=== PATIENT | female | born 1960 | race Caucasian/White ===

== ENCOUNTER 2019-10-29 18:18 | Observation (INO) | payer OTHER ==
--- OUTSIDE RECORDS SUMMARY | 2019-10-29 18:21 | XMS REPORT ---
:1960 Author Organization [employer] Care Team Providers Name Role Phone Chandu Candelario Provider Role Unavailable Allergies No Known Allergies Problems Problem Type Condition Code Onset Dates Condition Status Assessment Internal derangement of right knee M23.91 Active Assessment Pain in right knee M25.561 Active Assessment Sciatica, right side M54.31 Active Problem Pain in right knee M25.561 Active Problem Other chronic pain G89.29 Active Problem Pain of right lower leg M79.661 Active Assessment Pain of right lower leg M79.661 Active Problem Sciatica, right side M54.31 Active Problem Internal derangement of right knee M23.91 Active Medications Medication Code System Code Instructions Start End Date Status Dosage Date Alendronate Sodium [facility] 49820-18 Active not defined 01-00 Diazepam [facility] 93486-52 Active not defined 00-01 Mirtazapine [facility] 67611-57 Active not defined 01-05 Sertraline HCl [facility] 45041-11 Active not defined 01-02 Multivitamin [facility] 66370-19 Active not defined 838 Restasis [facility] 45427-64 Active not defined 63-30 Gabapentin NDC 0 Active not defined Breo Ellipta [facility] 23108-54 Active not defined 82-10 potassium NDC 0 Active not defined losartan NDC 0 Active not defined Vitamin B-12 [facility] 57343-33 Active not defined 980 Pantoprazole [facility] 86001-71 Active not defined Sodium 84-01 Vitamin D-3 [facility] 64363-27 Active not defined 924 Celecoxib [facility] 74468-82 Active not defined 06-06 [place] [address]-43 Active not defined ER 11-11 Calcium NDC 0 [place] [address]-34 Active not defined 51-01 Levothyroxine [facility] 56379-52 Active not defined Sodium 01-01 [place] [address]-69 Active not defined 01-04 Ventolin NDC 0 Active not defined Results No Known Results Summary Purpose [employer]ClinicalWorks Submission
[2019-10-29 19:17] LABS: Absolute Lymphocytes (CBC) 1.8 K/uL (0.7-4.9); Basophils % 0.8 % (0-1.3); Hematocrit 41.6 % (36.0-45.0); Lymphocytes % 21.9 % (15.3-44.8); MPV 7.3 fL (7.6-11.3); Protime INR 0.96; RBC Red Blood Cell Count 4.26 M/uL (3.86-4.86)
--- NOTE | 2019-10-29 19:34 | RAD REPORT ---
EXAM DESCRIPTION: CT - Head Brain Wo Cont - 10/29/2019 7:23 pm CLINICAL HISTORY: Headache COMPARISON: 2006 TECHNIQUE: Computed axial tomography of the head was obtained. IV contrast was not requested. All CT scans are performed using dose optimization technique as appropriate and may include automated exposure control or mA/KV adjustment according to patient size. FINDINGS: An intracranial bleed is not seen . The ventricles are normal in caliber. No extra-axial fluid collection is noted. Fluid within the sinuses/ mastoids is not seen. IMPRESSION: No acute intracranial abnormality is seen. If patient's symptoms persist MRI of the bra in would be recommended.
--- NOTE | 2019-10-29 19:35 | ER ---
Nurse's Notes [facility] Name: Daniela Mustafa Age: 58 yrs Sex: Female : 1960 Arrival Date: 10/29/2019 Time: 18:33 Bed 13 Private MD: Diagnosis: Chest pain, unspecified;Chest pain on breathing;Tobacco abuse counseling;Tobacco use;Pulmonary fibrosis, unspecified Presentation: 10/29 18:33 Presenting complaint: EMS states: pt was eating at [employer] about an hour ago when ca1 she c/o chest pain upon breathing. Inspiratory pain that is described as sharp and non-radiating. VS are stable, 12L EKG is normal. BGL 123, Meds not given, IV inserted at R wrist G20. Hx of VT and HPN. Transition of care: patient was not received from another setting of care. Onset of symptoms was October 29, 2019 at 17:00. Risk Assessment: Do you want to hurt yourself or someone else? Patient reports no desire to harm self or others. Initial Sepsis Screen: Does the patient meet any 2 criteria? No. Patient's initial sepsis screen is negative. Does the patient have a suspected source of infection? No. Patient's initial sepsis screen is negative. Care prior to arrival: None. 18:33 Method Of Arrival: [facility] ca1 18:33 Acuity: TAB 3 ca1 Historical: - Allergies: 18:43 No Known Allergies; ca1 - PMHx: 18:43 Hypertension; Thyroid problem; Fibromyalgia; Rheumatoid Arthritis; Osteoporosis; ca1 Osteoarthritis; Myocardial infarction; Neuropathy; - PSHx: 18:43 Hernia repair; ca1 - Immunization history:: Adult Immunizations up to date, Pneumococcal vaccine is up to date, Flu vaccine is up to date. - Social history:: Smoking status: Patient uses tobacco products, smokes one pack cigarettes per day. - Ebola Screening: : Patient negative for fever greater than or equal to 101.5 degrees Fahrenheit, and additional compatible Ebola Virus Disease symptoms Patient denies exposure to infectious person Patient denies travel to an Ebola-affected area in the 21 days before illness onset No symptoms or risks identified at this time. - Family history:: not pertinent. Screenin:45 Abuse screen: Denies threats or abuse. Denies injuries from another. Nutritional ca1 screening: No deficits noted. Tuberculosis screening: No symptoms or risk factors identified. Fall Risk IV access (20 points). Assessment: 18:45 General: Appears in no apparent distress. comfortable, Behavior is calm, cooperative, ca1 appropriate for age. Pain: Complains of pain in anterior aspect of left upper chest Pain does not radiate. Pain currently is 7 out of 10 on a pain scale. Quality of pain is described as sharp, Pain began 1 hour ago. Is intermittent. Neuro: Level of Consciousness is awake, alert, obeys commands, Oriented to person, place, time, situation, Appropriate for age. Cardiovascular: Heart tones S1 S2 present Capillary refill < 3 seconds Patient's skin is warm and dry. Rhythm is sinus rhythm. Respiratory: Airway is patent Respiratory effort is even, unlabored, Respiratory pattern is regular, symmetrical, Breath sounds are clear bilaterally. GI: Abdomen is flat, non-distended, Bowel sounds present X 4 quads. Abd is soft and non tender X 4 quads. : No deficits noted. No signs and/or symptoms were reported regarding the genitourinary system. EENT: No deficits noted. No signs and/or symptoms were reported regarding the EENT system. Derm: Skin is intact, is healthy with good turgor, Skin is pink, warm \T\ dry. Musculoskeletal: Circulation, motion, and sensation intact. Capillary refill < 3 seconds. 19:22 Reassessment: PT to CT. ca1 19:51 Reassessment: Patient appears in no apparent distress at this time. Patient is alert, ca1 oriented x 3, equal unlabored respirations, skin warm/dry/pink. 20:39 Reassessment: Patient appears in no apparent distress at this time. Patient is alert, ca1 oriented x 3, equal unlabored respirations, skin warm/dry/pink. 22:00 Reassessment: Patient appears in no apparent distress at this time. Patient is alert, rr5 oriented x 3, equal unlabored respirations, skin warm/dry/pink. received from daniela DUNLAP for admission awaiting for room assignment. patient is awake, conscious and coherent not in distress. vital signs taken and recorded. Patient states symptoms have improved. 23:00 Reassessment: Patient appears in no apparent distress at this time. No changes from rr5 previously documented assessment. Patient is alert, oriented x 3, equal unlabored respirations, skin warm/dry/pink. 10/30 00:00 Reassessment: Patient appears in no apparent distress at this time. resting eyes closed rr5 breathing spontaneously at room air. awaiting for acceptance of report. 00:30 Reassessment: hospitalist informed for the BP of 76/55 mmHg with telephone order made rr5 and carried out. 01:16 Reassessment: Patient appears in no apparent distress at this time. Patient is alert, rr5 oriented x 3, equal unlabored respirations, skin warm/dry/pink. denies any discomfort latest BP 92/58 mmHg after 1 liter of NS. 4th floor staff updated thru phone. Patient denies pain at this time. Vital Signs: 10/29 18:43 BP 115 / 75; Pulse 84; Resp 16 S; Temp 98.9(O); Pulse Ox 99% on R/A; Weight 79.83 kg ca1 (R); Height 5 ft. 8 in. (172.72 cm) (R); Pain 7/10; 19:51 BP 108 / 79; Pulse 88; Resp 20 S; Pulse Ox 97% on R/A; ca1 20:39 BP 109 / 70; Pulse 81; Resp 16 S; Pulse Ox 98% on R/A; ca1 22:30 BP 92 / 55; Pulse 79; Resp 25; Pulse Ox 94% ; rr5 10/30 00:00 BP 90 / 51; Pulse 74; Resp 24; Temp 96.9; Pulse Ox 95% ; Pain 0/10; rr5 00:35 BP 76 / 55; Pulse 66; Resp 20; Pulse Ox 94% ; rr5 01:00 BP 83 / 55; Pulse 64; Resp 21; Pulse Ox 93% ; rr5 01:07 BP 96 / 62; Pulse 68; Resp 22; Temp 97.5; Pulse Ox 99% ; rr5 01:15 BP 92 / 58; Pulse 65; Resp 20; Pulse Ox 94% ; rr5 10/29 18:43 Body Mass Index 26.76 (79.83 kg, 172.72 cm) ca1 01:00 ongoing NS bolus rr5 ED Course: 10/29 18:33 Patient arrived in ED. ca1 18:37 Timo Gibson MD is Attending Physician. jeannie 18:38 Triage completed. ca1 18:43 Arm band placed on right wrist. ca1 18:45 Patient has correct armband on for positive identification. Placed in gown. Bed in low ca1 position. Call light in reach. Side rails up X 1. playground monitor on. Pulse ox on. NIBP on. Warm blanket given. 18:45 No provider procedures requiring assistance completed. Maintain EMS IV. Dressing ca1 intact. Good blood return noted. Site clean \T\ dry. Gauge \T\ site: G20 wrist. 18:51 Side rails up X2. Adult w/ patient. 5 18:51 EKG done, by ED staff, reviewed by Timo Gibson MD. mh5 19:03 Initial lab(s) drawn, by sc, sent to lab. ca1 19:13 Daniela Ovalle, RN is Primary Nurse. ca1 19:14 XRAY Chest (1 view) In Process Unspecified. EDMS 19:22 Urine collected: clean catch specimen, clear, Amount Voided: 60mL. ca1 19:23 CT Head Brain wo Cont In Process Unspecified. EDMS 19:32 Ellie Lainez MD is Hospitalizing Provider. [facility] 20:17 CT Chest For PE Angio In Process Unspecified. EDMS 10/30 00:01 Patient admitted, IV remains in place. intact, No redness/swelling at site. rr5 Administered Medications: 10/29 19:34 Drug: Lopressor 25 mg Route: PO; ca1 20:39 Follow up: Response: No adverse reaction ca1 19:36 Drug: Aspirin Chewable Tablet 162 mg Route: PO; ca1 20:40 Follow up: Response: No adverse reaction ca1 19:37 Drug: Lovenox 1 mg/kg Route: Sub-Q; Site: right lower abdomen; ca1 20:40 Follow up: Response: No adverse reaction ca1 10/30 00:46 Drug: NS 0.9% 1000 ml Route: IV; Rate: 1 bolus; Site: right wrist; rr5 01:15 Follow up: Response: No adverse reaction; IV Status: Completed infusion; IV Intake: rr5 1000ml Intake: 01:15 IV: 1000ml; Total: 1000ml. rr5 Outcome: 10/29 19:34 Decision to Hospitalize by Provider. [facility] 10/30 00:32 Admitted to Tele accompanied by tech, via stretcher, room 425, Report called to lissa rr5 Condition: stable Instructed on the need for admit. 01:35 Patient left the ED. rr5 Signatures: Dispatcher [employer] Timo Price MD MD cha Martinez, [facility] Alan Sullivan, RN RN rr5 Daniela Ovalle RN RN ca1
[2019-10-29] MEDS ORDERED: ASPIRIN 81 MG CHEWABLE TABLET ONE (19:36)
[2019-10-29] MEDS ORDERED: METOPROLOL TAR 25 MG TAB ONE (19:36)
[2019-10-29] MEDS ORDERED: ENOXAPARIN 80 MG/0.8 ML SQ ONE (19:36)
--- NOTE | 2019-10-29 19:36 | EDPHYS ---
Physician Documentation [facility] Name: Daniela Mustafa Age: 58 yrs Sex: Female : 1960 Arrival Date: 10/29/2019 Time: 18:33 Bed 13 Private MD: ED Physician Timo Gibson HPI: 10/29 19:07 This 58 yrs old Female presents to ER via EMS with complaints of Chest Pain, jeannie Shortness Of Breath. 19:07 The patient or guardian reports chest pain that is located primarily in the substernal jeannie area. Onset: just prior to arrival. The pain does not radiate. Associated signs and symptoms: Pertinent positives: headache, shortness of breath. The chest pain is described as a heaviness. Modifying factors: The symptoms are alleviated by nothing. the symptoms are aggravated by nothing. Severity of pain: At its worst the pain was mild moderate in the emergency department the pain is unchanged. The patient has not experienced similar symptoms in the past. Historical: - Allergies: 18:43 No Known Allergies; ca1 - PMHx: 18:43 Hypertension; Thyroid problem; Fibromyalgia; Rheumatoid Arthritis; Osteoporosis; ca1 Osteoarthritis; Myocardial infarction; Neuropathy; - PSHx: 18:43 Hernia repair; ca1 - Immunization history:: Adult Immunizations up to date, Pneumococcal vaccine is up to date, Flu vaccine is up to date. - Social history:: Smoking status: Patient uses tobacco products, smokes one pack cigarettes per day. - Ebola Screening: : Patient negative for fever greater than or equal to 101.5 degrees Fahrenheit, and additional compatible Ebola Virus Disease symptoms Patient denies exposure to infectious person Patient denies travel to an Ebola-affected area in the 21 days before illness onset No symptoms or risks identified at this time. - Family history:: not pertinent. ROS: 19:07 Constitutional: Negative for fever, chills, and weight loss, Eyes: Negative for injury, jeannie pain, redness, and discharge, ENT: Negative for injury, pain, and discharge, Neck: Negative for injury, pain, and swelling, Respiratory: Negative for shortness of breath, cough, wheezing, and pleuritic chest pain, Abdomen/GI: Negative for abdominal pain, nausea, vomiting, diarrhea, and constipation, Back: Negative for injury and pain, : Negative for injury, bleeding, discharge, and swelling, MS/Extremity: Negative for injury and deformity, Skin: Negative for injury, rash, and discoloration, Psych: Negative for depression, anxiety, suicide ideation, homicidal ideation, and hallucinations, Allergy/Immunology: Negative for hives, rash, and allergies, Endocrine: Negative for neck swelling, polydipsia, polyuria, polyphagia, and marked weight changes, Hematologic/Lymphatic: Negative for swollen nodes, abnormal bleeding, and unusual bruising. 19:07 Cardiovascular: Positive for chest pain. 19:07 Neuro: Positive for headache. Exam: 19:07 Constitutional: This is a well developed, well nourished patient who is awake, alert, jeannie and in no acute distress. Head/Face: Normocephalic, atraumatic. Eyes: Pupils equal round and reactive to light, extra-ocular motions intact. Lids and lashes normal. Conjunctiva and sclera are non-icteric and not injected. Cornea within normal limits. Periorbital areas with no swelling, redness, or edema. ENT: Nares patent. No nasal discharge, no septal abnormalities noted. Tympanic membranes are normal and external auditory canals are clear. Oropharynx with no redness, swelling, or masses, exudates, or evidence of obstruction, uvula midline. Mucous membranes moist. Neck: Trachea midline, no thyromegaly or masses palpated, and no cervical lymphadenopathy. Supple, full range of motion without nuchal rigidity, or vertebral point tenderness. No Meningismus. Chest/axilla: Normal chest wall appearance and motion. Nontender with no deformity. No lesions are appreciated. Cardiovascular: Regular rate and rhythm with a normal S1 and S2. No gallops, murmurs, or rubs. Normal PMI, no JVD. No pulse deficits. Respiratory: Lungs have equal breath sounds bilaterally, clear to auscultation and percussion. No rales, rhonchi or wheezes noted. No increased work of breathing, no retractions or nasal flaring. Abdomen/GI: Soft, non-tender, with normal bowel sounds. No distension or tympany. No guarding or rebound. No evidence of tenderness throughout. Back: No spinal tenderness. No costovertebral tenderness. Full range of motion. Female : Normal external genitalia. Skin: Warm, dry with normal turgor. Normal color with no rashes, no lesions, and no evidence of cellulitis. MS/ Extremity: Pulses equal, no cyanosis. Neurovascular intact. Full, normal range of motion. Neuro: Awake and alert, GCS 15, oriented to person, place, time, and situation. Cranial nerves II-XII grossly intact. Motor strength 5/5 in all extremities. Sensory grossly intact. Cerebellar exam normal. Normal gait. Psych: Awake, alert, with orientation to person, place and time. Behavior, mood, and affect are within normal limits. Vital Signs: 18:43 BP 115 / 75; Pulse 84; Resp 16 S; Temp 98.9(O); Pulse Ox 99% on R/A; Weight 79.83 kg ca1 (R); Height 5 ft. 8 in. (172.72 cm) (R); Pain 7/10; 19:51 BP 108 / 79; Pulse 88; Resp 20 S; Pulse Ox 97% on R/A; ca1 20:39 BP 109 / 70; Pulse 81; Resp 16 S; Pulse Ox 98% on R/A; ca1 22:30 BP 92 / 55; Pulse 79; Resp 25; Pulse Ox 94% ; rr5 10/30 00:00 BP 90 / 51; Pulse 74; Resp 24; Temp 96.9; Pulse Ox 95% ; Pain 0/10; rr5 00:35 BP 76 / 55; Pulse 66; Resp 20; Pulse Ox 94% ; rr5 01:00 BP 83 / 55; Pulse 64; Resp 21; Pulse Ox 93% ; rr5 01:07 BP 96 / 62; Pulse 68; Resp 22; Temp 97.5; Pulse Ox 99% ; rr5 01:15 BP 92 / 58; Pulse 65; Resp 20; Pulse Ox 94% ; rr5 10/29 18:43 Body Mass Index 26.76 (79.83 kg, 172.72 cm) ca1 01:00 ongoing NS bolus rr5 MDM: 10/29 18:37 Patient medically screened. [facility] 19:11 Data reviewed: vital signs, nurses notes, lab test result(s), EKG, radiologic studies, [facility] CT scan, plain films. 10/29 18:45 Order name: Basic Metabolic Panel; Complete Time: 20:45 ca1 10/29 18:45 Order name: CBC with Diff; Complete Time: 20:45 ca1 10/29 18:45 Order name: LFT's; Complete Time: 20:45 ca1 10/29 18:45 Order name: Magnesium; Complete Time: 20:45 ca1 10/29 18:45 Order name: NT PRO-BNP; Complete Time: 20:45 ca1 10/29 18:45 Order name: PT-INR; Complete Time: 20:45 ca1 10/29 18:45 Order name: Troponin (emerg Dept Use Only); Complete Time: 20:45 ca1 10/29 19:07 Order name: Urine Culture [facility] 10/29 19:21 Order name: Urine Dipstick--Ancillary (enter results); Complete Time: 20:45 ar5 10/29 21:29 Order name: Basic Metabolic Panel [facility] 10/29 21:29 Order name: Basic Metabolic Panel [facility] 10/29 21:29 Order name: CBC with Automated Diff [facility] 10/29 21:29 Order name: CBC with Automated Diff [facility] 10/29 21:29 Order name: Lipid Profile [facility] 10/29 18:45 Order name: XRAY Chest (1 view); Complete Time: 20:[address] [facility] 10/29 18:45 Order name: EKG; Complete Time: 18:46 ca1 10/29 18:45 Order name: Cardiac monitoring; Complete Time: 18:45 ca1 10/29 18:45 Order name: EKG - Nurse/Tech; Complete Time: 18:50 ca1 10/29 19:06 Order name: CT Head Brain wo Cont; Complete Time: 20:45 [facility] 10/29 19:34 Order name: CT Chest For PE Angio; Complete Time: 20:45 [facility] 10/29 21:29 Order name: CONS Physician Consult [facility] 10/29 21:29 Order name: Heart Healthy [facility] 10/29 21:29 Order name: Echo with Doppler [facility] 10/29 21:29 Order name: EKG Electrocardiogram [facility] 10/29 21:29 Order name: EKG Electrocardiogram [facility] 10/29 21:29 Order name: Lipid Profile [facility] 10/29 18:45 Order name: IV Saline Lock; Complete Time: 18:45 ca1 10/29 18:45 Order name: Labs collected and sent; Complete Time: 18:52 ca1 10/29 18:45 Order name: O2 Per Protocol; Complete Time: 18:45 ca1 10/29 18:45 Order name: O2 Sat Monitoring; Complete Time: 18:45 ca1 10/29 19:07 Order name: Urine Dipstick-Ancillary (obtain specimen); Complete Time: 19:21 jeannie Administered Medications: 19:34 Drug: Lopressor 25 mg Route: PO; ca1 20:39 Follow up: Response: No adverse reaction ca1 19:36 Drug: Aspirin Chewable Tablet 162 mg Route: PO; ca1 20:40 Follow up: Response: No adverse reaction ca1 19:37 Drug: Lovenox 1 mg/kg Route: Sub-Q; Site: right lower abdomen; ca1 20:40 Follow up: Response: No adverse reaction ca1 10/30 00:46 Drug: NS 0.9% 1000 ml Route: IV; Rate: 1 bolus; Site: right wrist; rr5 01:15 Follow up: Response: No adverse reaction; IV Status: Completed infusion; IV Intake: rr5 1000ml Disposition: 10/29/19 19:34 Hospitalization ordered by Ellie Lainez for Observation. Preliminary diagnosis are Chest pain, unspecified, Chest pain on breathing, Tobacco abuse counseling, Tobacco use, Pulmonary fibrosis, unspecified. - Bed requested for Telemetry/MedSurg (observation). - Status is Observation. rr5 - Condition is Fair. - Problem is new. - Symptoms have improved. UTI on Admission? No Signatures: Dispatcher [employer] EDMS Timo Gibson MD MD cha Garcia, Cindy, RN RN cg Alan Sullivan RN RN rr5 Daniela Ovalle RN RN ca1 Corrections: (The following items were deleted from the chart) 10/29 21:16 19:34 Hospitalization Ordered by Ellie Lainez MD for Observation. Preliminary [facility] diagnosis is Chest pain, unspecified; Chest pain on breathing; Tobacco abuse counseling; Tobacco use. Bed requested for Telemetry/MedSurg (observation). Status is Observation. Condition is Fair. Problem is new. Symptoms have improved. UTI on Admission? No. jeannie 22:50 21:16 10/29/2019 19:34 Hospitalization Ordered by Ellie Lainez MD for Observation. Preliminary diagnosis is Chest pain, unspecified; Chest pain on breathing; Tobacco abuse counseling; Tobacco use; Pulmonary fibrosis, unspecified. Bed requested for Telemetry/MedSurg (observation). Status is Observation. Condition is Fair. Problem is new. Symptoms have improved. UTI on Admission? No. jeannie 10/30 01:35 12/30 22:50 10/29/2019 19:34 Hospitalization Ordered by Ellie Lainez MD for rr5 Observation. Preliminary diagnosis is Chest pain, unspecified; Chest pain on breathing; Tobacco abuse counseling; Tobacco use; Pulmonary fibrosis, unspecified. Bed requested for Telemetry/MedSurg (observation). Status is Observation. Condition is Fair. Problem is new. Symptoms have improved. UTI on Admission? No. cg
[2019-10-29 19:37] LABS: ALT/SGPT 16 U/L (12-78); AST/SGOT 26 U/L (15-37); Albumin 3.7 g/dL (3.4-5.0); Alkaline Phosphatase 93 U/L (45-117); BUN Blood Urea Nitrogen 15 mg/dL (7-18); Bicarbonate 28 mmol/L (21-32); Bilirubin Direct 0.1 mg/dL (0-0.2); Bilirubin Total 0.4 mg/dL (0.2-1.0); Glucose Level 99 mg/dL (74-106); Magnesium 2.1 mg/dL (1.8-2.4); NT PRO-BNP 73 pg/mL (<125); Potassium 3.5 mmol/L (3.5-5.1); Protein, Total 8.1 g/dL (6.4-8.2); Sodium Level 140 mmol/L (136-145); Troponin (Emerg Dept Use Only) < 0.02 ng/mL (0.0-0.045)
--- NOTE | 2019-10-29 19:37 | RAD REPORT ---
EXAM DESCRIPTION: Nori Single View10/29/2019 7:13 pm CLINICAL HISTORY: Chest pain COMPARISON: 2017 FINDINGS: Mild bilateral pulmonary interstitial lung opacities without obvious change presumably ch ronic The heart is normal size IMPRESSION: No acute abnormalities displayed
--- NOTE | 2019-10-29 20:29 | RAD REPORT ---
EXAM DESCRIPTION: CT - Chest For Pe Angio - 10/29/2019 8:11 pm CLINICAL HISTORY: Chest pain COMPARISON: 2017 TECHNIQUE: Dynamically enhanced axial 3 mm thick images of the chest were obtained during administra tion of <100> mL Isovue 370 IV contrast. Coronal and oblique reconstruction images were generated and reviewed. Exam utilizes a protocol for optimal evaluation of pulmonary arterial tree. Maximum intensity projections 3D imaging was utilized All CT scans are performed using dose optimization technique as appropriate and may include automated exposure control or mA/KV adjustment according to patient size. FINDINGS: A pulmonary embolus is not seen. A thoracic aortic aneurysm is not noted. A pleural effusion is not seen. A pericardial effusion is not seen. A lung consolidation is not present. Moderate predominantly subpleural interstitial lung opacities co nsistent with pulmonary fibrosis IMPRESSION: Negative for a pulmonary embolism. Moderate idiopathic pulmonary fibrosis
[2019-10-29 20:30] LABS: Urine Specific Gravity 1.015 (1.005-1.030)
[2019-10-29 20:31] LABS: Urine Blood NEGATIVE (NEG); Urine Glucose NEGATIVE (NEG); Urine Protein NEGATIVE (NEG)
[2019-10-29] MEDS ORDERED: ACETAMINOPHEN 500 MG TAB PO PRN (21:17)
[2019-10-29] MEDS ORDERED: ALPRAZOLAM 0.25 MG TABLET PO PRN (21:17)
[2019-10-29] MEDS ORDERED: MORPHINE 4 MG/ML SYR IV PRN (21:17)
[2019-10-30] MEDS ORDERED: NA CHLORIDE 0.9% 1,000 ML ONE (00:45)
[2019-10-30 02:02] VITALS: BMI 26.2
[2019-10-30 04:17] LABS: Absolute Lymphocytes (CBC) 1.7 K/uL (0.7-4.9); Hematocrit 37.8 % (36.0-45.0); Lymphocytes % 33.2 % (15.3-44.8); MPV 7.5 fL (7.6-11.3); RBC Red Blood Cell Count 3.87 M/uL (3.86-4.86)
[2019-10-30 04:23] LABS: Potassium 3.8 mmol/L (3.5-5.1)
[2019-10-30] MEDS ORDERED: HOME MED 1 EA UNK (Albuterol Sulfate [Ventolin Hfa] 2 PUFF) IH PRN (07:49)
[2019-10-30] MEDS ORDERED: HYDROCORTISONE SUC 100 MG INJ IV ONE (07:51)
--- NOTE | 2019-10-30 08:18 | P.HP ---
Certification for Inpatient Patient admitted to: Observation With expected LOS: <2 Midnights Patient will require the following post-hospital care: None Practitioner: I am a practitioner with admitting privileges, knowledge of patient current condition, hospital course, and medical plan of care. Services: Services provided to patient in accordance with Admission requirements found in Title 42 Section 412.3 of the Code of Federal Regulations Patient History Date of Service: 10/29/19 Reason for admission: Chest pain and shortness of breath History of Present Illness: Patient is a 58-year-old female came to the hospital with chest discomfort. Pain was mainly in the substernal region. Patient also had a headache and shortness of breath. Patient has history of idiopathic pulmonary fibrosis. Patient states her pain does get worse after eating. Her symptoms may be related to gastritis or gastroesophageal reflux disease. However, with her history of cardiac disease. She will be admitted for further workup. She has seen a business analysis specialist in the past and has been told she has atherosclerosis. She does not have a stent. She has never had myocardial infarction. She will be admitted for further observation. Allergies No Known Allergies Allergy (Verified 10/30/19 02:57) Home Medications: Simvastatin [Zocor*] 20 mg PO BEDTIME 03/04/13 Albuterol Sulfate [Ventolin Hfa] 2 puff IH QIDP PRN 10/30/19 Alendronate Sodium 70 mg PO EVERY 7TH DAY 10/30/19 Calcium Carbonate [Calcium] 600 mg PO BEDTIME 10/30/19 Carvedilol [Coreg] 3.125 mg PO BID 10/30/19 Celecoxib 200 mg PO BID 10/30/19 Cholecalciferol (Vitamin D3) [Vitamin D3] 2 tab PO DAILY 10/30/19 Cyclosporine [Restasis] 1 drop EACH EYE BID 10/30/19 Diazepam [Valium] 0.5 tab PO BID 10/30/19 Fluticasone/Umeclidin/Vilanter [Trelegy Ellipta 100-62.5-25] 1 puff IH BID 10/30 Gabapentin 300 mg PO TID 10/30/19 Levothyroxine Sodium 125 mcg PO DAILY 10/30/19 Losartan Potassium [Cozaar] 25 mg PO DAILY 10/30/19 Magnesium Oxide [Magnesium] 250 mg PO BEDTIME 10/30/19 Mirtazapine 30 mg PO BEDTIME 10/30/19 Morphine *Extended Release* [MS Contin] 15 mg PO TID 10/30/19 Multivitamin [Multiple Vitamins] 1 tab PO DAILY 10/30/19 Pantoprazole [Protonix Tab] 40 mg PO DAILY 10/30/19 Sertraline HCl 100 mg PO BEDTIME 10/30/19 azaTHIOprine [Azathioprine] 50 mg PO TID 10/30/19 - Past Medical/Surgical History Has patient received pneumonia vaccine in the past: Yes Diabetic: No -: Hypertension -: Hypothyroidism -: Rheumatic fever -: Acute myocardial infarction -: Osteoporosis -: Osteoarthritis -: neuropathy -: tobacco abuse -: hernia repair - Family History Mother Medical History: Cancer Notes: bone and breast cancer Father Medical History: Cancer Notes: prostate and bone cancer - Social History Smoking Status: Current every day smoker Alcohol use: No CD- Drugs: No Caffeine use: Yes Place of Residence: Home Review of Systems 10-point ROS is otherwise unremarkable Physical Examination - Vital Signs Temperature: 97.2 F Blood Pressure: 92/61 Pulse: 58 Respirations: 16 Pulse Ox (%): 95 - Physical Exam General: Alert, In no apparent distress, Oriented x3 HEENT: Atraumatic, PERRLA, Mucous membr. moist/pink, EOMI, Sclerae nonicteric Neck: Supple, 2+ carotid pulse no bruit, No LAD, Without JVD or thyroid abnormality Respiratory: Clear to auscultation bilaterally, Normal air movement Cardiovascular: Regular rate/rhythm, Normal S1 S2, No murmurs Gastrointestinal: Normal bowel sounds, Soft and benign, Non-distended, No tenderness, No rebound, No guarding Musculoskeletal: No clubbing, No swelling, No tenderness Integumentary: No rashes Neurological: Normal gait, Normal speech, Normal strength at 5/5 x4 extr, Normal tone, Sensation intact, Cranial nerves 3-12 intact, Normal affect Lymphatics: No axilla or inguinal lymphadenopathy - Studies Laboratory Data (last 24 hrs) 10/29/19 19:02: Triglycerides 203 H, Cholesterol 140, HDL Cholesterol 41, Cholesterol/HDL Ratio 3.41 10/29/19 19:02: PT 11.4, INR 0.96 10/29/19 19:02: WBC 8.2, Hgb 14.2, Hct 41.6, Plt Count 243 10/29/19 19:02: Sodium 140, Potassium 3.5, BUN 15, Creatinine 0.90, Glucose 99, Magnesium 2.1, Total Bilirubin 0.4, AST 26, ALT 16, Alkaline Phosphatase 93 Assessment & Plan - Problems (Diagnosis) (1) Chest pain, rule out acute myocardial infarction Current Visit: Yes Status: Acute (2) IPF (idiopathic pulmonary fibrosis) Current Visit: Yes Status: Acute (3) Gastritis Current Visit: Yes Status: Acute (4) GERD (gastroesophageal reflux disease) Current Visit: Yes Status: Acute (5) Tobacco abuse Current Visit: Yes Status: Acute - Plan 1. Serial troponins and EKG 2. Cardiology consultation 3. Echocardiogram and stress test if cardiology is agreeable 4. Anti-platelet therapy, anti coagulation, beta-jaja, statin, and O2 as needed 5. IV morphine for pain 6. Nitro p.r.n. 7. IV hydration/steroids 8. GI/DVT prophylaxis Discharge Plan: Home Plan to discharge in: 24 Hours - Advance Directives Does patient have a Living Will: No Does patient have a Durable POA for Healthcare: No - Code Status/Comfort Care Code Status Assessed: Yes Code Status: Full Code Critical Care: No Time Spent Managing PTS Care (In Minutes): 40
[2019-10-30] MEDS ORDERED: WATER FOR INJ,STERILE 10 ML ONE (08:44)
[2019-10-30] MEDS ORDERED: ASPIRIN EC 81 MG TAB PO SCH (09:00)
[2019-10-30] MEDS ORDERED: METOPROLOL TAR 50 MG TAB PO SCH (09:00)
[2019-10-30] MEDS ORDERED: PANTOPRAZOLE 40MG TABLET PO SCH (09:00)
[2019-10-30] MEDS ORDERED: HOME MED 1 EA UNK (Fluticasone/Umeclidin/Vilanter [Trelegy Ellipta 100-62.5-25] 1 PUFF) IH SCH (09:00)
[2019-10-30] MEDS ORDERED: AZATHIOPRINE 50 MG TABLET PO SCH (09:00)
[2019-10-30] MEDS ORDERED: HOME MED 1 EA UNK (Cyclosporine [Restasis] 1 DROP) EACH EYE SCH (09:00)
[2019-10-30] MEDS ORDERED: ENOXAPARIN 40 MG/0.4 ML SQ SCH (09:00)
[2019-10-30] MEDS ORDERED: MULTIVITAMIN TAB PO SCH (09:00)
[2019-10-30] MEDS ORDERED: DIAZEPAM 5 MG TABLET PO SCH (09:00)
[2019-10-30] MEDS ORDERED: GABAPENTIN 300 MG CAP PO SCH (09:00)
[2019-10-30] MEDS ORDERED: CHOLECALCIFEROL PO SCH (09:00)
[2019-10-30] MEDS ORDERED: HOME MED 1 EA UNK (Celecoxib [Celecoxib] 200 MG) PO SCH (09:00)
[2019-10-30] MEDS ORDERED: MORPHINE *EXTENDED RELEASE* 15 MG TAB PO SCH (09:00)
[2019-10-30] MEDS ORDERED: ASPIRIN 325 MG TAB PO SCH (09:00)
[2019-10-30 12:10] VITALS: O2SAT 97
[2019-10-30 12:59] VITALS: BP 102/56; TEMP 97.4
--- NOTE | 2019-10-30 14:07 | EKG ---
Test Date: 2019-10-29 Test Time: 18:46:23 Escrow Officer: KERLINE MEASUREMENT RESULTS: Intervals: Rate: 86 ID: [id number] QRSD: 82 QT: 382 QTc: 457 [place]: P: 41 ID: [id number] QRS: 58 T: 2 INTERPRETIVE STATEMENTS: Normal sinus rhythm Nonspecific T wave abnormality Abnormal ECG Compared to ECG 12/01/2012 16:58:41 T-wave abnormality now present Electronically Signed On 10-30-19 14:06:08 DECONTAMINATOR by Mehran Johnson
--- NOTE | 2019-10-30 15:06 | CON ---
Date of Consultation: 10/30/[address] Lainez on 10/30/2019. She was seen on 10/30/2019. Reason For Consultation: Shortness of breath and cough. History Of Present Illness: Ms. Mustafa is a 58-year-old woman. She sees Dr. Henri Pillai and Dr Gino Hodge for her renal dysfunction and COPD. She also has a history of hypertension, fibromyalgia, tobacco abuse, coronary artery disease, rheumatoid arthritis, hypothyroidism, and neuropathy. She i s in normal sinus rhythm. She came in with mostly coughing spells and shortness of breath. Denied P ND, orthopnea, pedal edema, palpitations, or syncope. Coronary artery disease is mild by catheteriza tion in 2012. She has already had a normal chest x-ray, normal CT of her head, normal CT angiogram. All her blood work was unremarkable. She is feeling better now after treatment with inhalers, aspir in, Xanax, and metoprolol. Allergies: NONE. Review of Systems: Negative. Social History: Positive for tobacco. Family History: Positive for heart disease. Home Medications: Inhalers, Coreg, Valium, Celebrex, Synthroid, Neurontin, losartan, magnesium, Prot topher, Zocor, and azathioprine. Physical Examination: General: She was pleasant. No acute distress. Vital Signs: Stable. Afebrile. HEENT: Negative. Neck: Supple without any bruit, lymphadenopathy, JVD, or thyromegaly. Chest: Reveals some expiratory wheezing. Abdomen: Benign. Cardiac: Normal rhythm and rate. No murmurs, gallops, or rubs. Abdomen: Obese. Extremities: Revealed no clubbing, cyanosis, or edema. Diagnostic Data: Basically were all within normal limit. Impression And Plan: 1.This is a patient with many cardiac risk factors. She has mild coronary artery disease in 2013, c edna in with shortness of breath, possibly chronic obstructive pulmonary disease or bronchitis, but I think an echocardiogram and a stress test are reasonable. I think a Lexiscan would be the choice. W e can certainly do that as an inpatient or outpatient. They were ordered as an inpatient, but this i s a holiday and there is no call to do the studies, so we can probably send her home or I can do thos e as an outpatient. 2.Hypertension. 3.Fibromyalgia. 4.Rheumatoid arthritis. 5.Positive tobacco use. 6.Hypothyroidism, on Synthroid. 7.Neuropathy. 8.Dyslipidemia, on Zocor. 9.Gastroesophageal reflux disease, on Protonix. As stated earlier, patient can go home as far as I am concerned. I will make arrangements for her to have outpatient Lexiscan and an echocardiogram in the near future. ТАТЬЯНА/VINOD Voice ID: [id number] Report ID: [id number]
[2019-10-30] MEDS ORDERED: ATORVASTATIN 10 MG TAB PO SCH (21:00)
[2019-10-30] MEDS ORDERED: HOME MED 1 EA UNK (Calcium Carbonate [Calcium] 600 MG) PO SCH (21:00)
[2019-10-30] MEDS ORDERED: HOME MED 1 EA UNK (Magnesium Oxide [Magnesium] 250 MG) PO SCH (21:00)
[2019-10-30] MEDS ORDERED: SERTRALINE HCL 100 MG TAB PO SCH (21:00)
[2019-10-30] MEDS ORDERED: MIRTAZAPINE 30 MG PO SCH (21:00)
[2019-10-30] MEDS ORDERED: HOME MED 1 EA UNK (Simvastatin [Zocor*] 20 MG) PO SCH (21:00)
[2019-10-31] MEDS ORDERED: LEVOTHYROXINE SOD 0.125 MG TAB PO SCH (06:30)
--- NOTE | 2019-11-05 08:35 | P.DS ---
Discharge Date: 10/30/19 Disposition: ROUTINE DISCHARGE Reason for Admission: Chest pain and shortness of breath - Problems (1) Chest pain, rule out acute myocardial infarction Status: Acute (2) IPF (idiopathic pulmonary fibrosis) Status: Acute (3) Gastritis Status: Acute (4) GERD (gastroesophageal reflux disease) Status: Acute (5) Tobacco abuse Status: Acute Brief History of Present Illness: Patient is a 58-year-old female came to the hospital with chest discomfort. Pain was mainly in the substernal region. Patient also had a headache and shortness of breath. Patient has history of idiopathic pulmonary fibrosis. Patient states her pain does get worse after eating. Her symptoms may be related to gastritis or gastroesophageal reflux disease. However, with her history of cardiac disease. She will be admitted for further workup. She has seen a res counselor in the past and has been told she has atherosclerosis. She does not have a stent. She has never had myocardial infarction. She will be admitted for further observation. Hospital Course: Patient's troponin were negative. CT was negative. Patient stable for discharge home with outpatient follow-up. Vital Signs/Physical Exam: Temp Pulse Resp BP Pulse Ox 97.4 F 57 16 102/56 L 98 10/30/19 12:00 10/30/19 12:00 10/30/19 12:00 10/30/19 12:00 10/30/19 12:00 General: Alert, In no apparent distress, Oriented x3 Laboratory Data at Discharge: WBC 5.1 K/uL (4.3-10.9) D 10/30/19 03:35 Hgb 12.8 g/dL (12.0-15.0) 10/30/19 03:35 Hct 37.8 % (36.0-45.0) 10/30/19 03:35 Plt Count 233 K/uL (152-406) 10/30/19 03:35 PT 11.4 SECONDS (9.5-12.5) 10/29/19 19:02 INR 0.96 10/29/19 19:02 Sodium 142 mmol/L (136-145) 10/30/19 03:35 Potassium 3.8 mmol/L (3.5-5.1) 10/30/19 03:35 BUN 17 mg/dL (7-18) 10/30/19 03:35 Creatinine 0.83 mg/dL (0.55-1.3) 10/30/19 03:35 Glucose 104 mg/dL (74-106) 10/30/19 03:35 Magnesium 2.1 mg/dL (1.8-2.4) 10/29/19 19:02 Total Bilirubin 0.4 mg/dL (0.2-1.0) 10/29/19 19:02 AST 26 U/L (15-37) 10/29/19 19:02 ALT 16 U/L (12-78) 10/29/19 19:02 Alkaline Phosphatase 93 U/L (45-117) 10/29/19 19:02 Troponin I < 0.02 ng/mL (0.0-0.045) 10/30/19 10:56 Triglycerides 203 mg/dL (<150) H 10/29/19 19:02 Cholesterol 140 mg/dL (<200) 10/29/19 19:02 HDL Cholesterol 41 mg/dL (40-60) 10/29/19 19:02 Cholesterol/HDL Ratio 3.41 10/29/19 19:02 Home Medications: Simvastatin [Zocor*] 20 mg PO BEDTIME 03/04/13 Albuterol Sulfate [Ventolin Hfa] 2 puff IH QIDP PRN 10/30/19 Alendronate Sodium 70 mg PO EVERY 7TH DAY 10/30/19 Calcium Carbonate [Calcium] 600 mg PO BEDTIME 10/30/19 Carvedilol [Coreg] 3.125 mg PO BID 10/30/19 Celecoxib 200 mg PO BID 10/30/19 Cholecalciferol (Vitamin D3) [Vitamin D3] 2 tab PO DAILY 10/30/19 Cyclosporine [Restasis] 1 drop EACH EYE BID 10/30/19 Diazepam [Valium] 0.5 tab PO BID 10/30/19 Fluticasone/Umeclidin/Vilanter [Trelegy Ellipta 100-62.5-25] 1 puff IH BID 10/30 Gabapentin 300 mg PO TID 10/30/19 Levothyroxine Sodium 125 mcg PO DAILY 10/30/19 Losartan Potassium [Cozaar] 25 mg PO DAILY 10/30/19 Magnesium Oxide [Magnesium] 250 mg PO BEDTIME 10/30/19 Mirtazapine 30 mg PO BEDTIME 10/30/19 Morphine *Extended Release* [MS Contin*] 15 mg PO TID 10/30/19 Multivitamin [Multiple Vitamins] 1 tab PO DAILY 10/30/19 Pantoprazole [Protonix Tab*] 40 mg PO DAILY 10/30/19 Sertraline HCl 100 mg PO BEDTIME 10/30/19 azaTHIOprine [Azathioprine] 50 mg PO TID 10/30/19 Patient Discharge Instructions: OK TO DC IV AND DC HOME. FOLLOW-UP WITH PRIMARY CARE PROVIDER IN 1-2 WEEKS. FOLLOW-UP WITH CARDIOLOGY IN 1-2 WEEKS. RETURN TO THE ER IF symptoms worsen. CALL or TEXT DR. STARR AT [phone] IF ANY QUESTIONS REGARDING HOSPITAL STAY. PLEASE CALL THE FLOOR AT [phone] IF ANY MEDICATION OR NURSING QUESTIONS. Diet: AHA Activity: Fall precautions Followup: Lucien Milian DO [Primary Care Provider] - (call to schedule appointment) Time spent managing pt's care (in minutes): 30
== END 2019-10-30 12:05 | disposition home or self-care (01) ==
LOC: ER 18:18 → INTOOBSV 10-30 00:40 → 4TH 10-30 00:40
PROVIDERS: ADMIT Hospitalist; ATTEND Hospitalist
DX: R07.9 Chest pain, unspecified (principal); I10 Essential (primary) hypertension; J84.112 Idiopathic pulmonary fibrosis; K29.00 Acute gastritis without bleeding; K21.9 Gastro-esophageal reflux disease without esophagitis; F17.210 Nicotine dependence, cigarettes, uncomplicated; R51 Headache; I25.10 Atherosclerotic heart disease of native coronary artery without angina pectoris; M06.9 Rheumatoid arthritis, unspecified; E03.9 Hypothyroidism, unspecified; M79.7 Fibromyalgia; E78.5 Hyperlipidemia, unspecified; G62.9 Polyneuropathy, unspecified
CPT/HCPCS: 93005; 87088; 85025 ×2; 87086; 80048 ×2; 36415; 83735; 85610; 80061; 80076; 81003; 84484 ×3; 83880; 70450; 71275; 71045; 96372; 99285; Q9967; J1650 ×2; J7030; J1720; G0378 ×2; J7500

== ENCOUNTER 2021-06-22 12:17 | Emergency (ER) | payer OTHER ==
--- OUTSIDE RECORDS SUMMARY | 2021-06-22 12:21 | XMS REPORT | Continuity of Care Document ---
:[address] [facility] t Address [address] [place] [address] Care Team Providers Name Role Phone Yahir Milian DO Primary Care Physician Ambrosio LANG Attending Clinician Payers Payer Name Policy Type Policy Effective Expiration Source Number Date Date TEXANPLUSTEXANPLUS [id number] 2016 Method ist [id number] 2015- 00:00:00 H ospital resentHMO Problems Condition Condition Condition Status Onset Resolution Last Treating Co mments Source Name Details Category Date Date Treatment Clinician Date Hyperchole Hyperchole Problem Active [facility] sterolemia sterolemia 4-22 Fa jackie 00:00: Practic 00 e Lupus Lupus Problem Active [facility] erythemato Erythemato 4-19 Fa jackie ester ester 00:00: Practic 00 e Neuropathy Neuropathy Problem Active [facility] 4-15 Family 00:00: Practic 00 e Rheumatoid Rheumatoid Problem Active [facility] arthritis Arthritis 4-15 Fami ly 00:00: Practic 00 e Hypothyroi Hypothyroi Problem Active [facility] dism dism 1- Family 00:00: Practic 00 e Recurrent Recurrent Problem Active 2019- Fadi jenny major Major 1- Family depressive Depressive 00:00: Pr actic episodes, Episodes, 00 e moderate Moderate Essential Essential Problem Active Fadi jenny hypertensi Hypertensi 1-01 Fa jackie on on 00:00: Practic 00 e Peripheral Peripheral Problem Active [facility] vascular Vascular 10-31 Family disease Disease 00:00: Practic 00 e Gastroesop Gastroesop Problem Active [facility] hageal hageal 10-31 Family reflux Reflux 00:00: Practic disease Disease e Fibromyalg Fibromyalg Problem Active [facility] ia ia 10-31 Family 00:00: Practic 00 e 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 8-27 st disease disease 00:00: Hospita with with 00 l angina angina pectoris pectoris Anxiety Anxiety Disease [facility] l Arthritis Arthritis Disease Active [facility] COPD COPD Disease Active Methodi (chronic (chronic st obstructiv obstructiv Ho spita e e l pulmonary pulmonary disease) disease) Depression Depression Disease Active M ethodi [facility]ospita Headache Headache Disease Active [facility] di [facility]osp[facility] l HL HL Disease Active [facility] (hearing (hearing st loss) loss) [facility] Heart Heart Disease Active [facility] disease disease [facility]osp[facility] Hypertensi Hypertensi Disease Active M ethodi on on [facility] Hospita Pneumonia Pneumonia Disease Active Met hodi [facility] Disease of Disease of Disease Active M ethodi thyroid thyroid st gland gland Hospita 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 [facility] Internal Internal Problem Active [facility] derangemen derangemen [facility] kes - t of right t of right Me moria knee knee l Outpati ent Clinics Pain in Pain in Problem Active [facility] right knee right knee [facility] Sciatica, Sciatica, Problem Active [facility] right side right side [facility] Other Other Problem Active [facility] chronic chronic [facility] pain [facility] Pain of Pain of Diagnosis Active [facility] right right [facility] - lower leg lower leg Solo yakelin l [facility] Allergies, Adverse Reactions, Alerts This patient has no known allergies or adverse reactions. Family History Family Member Diagnosis Comments Start Date Stop Date Source Natural father [facility] Natural father [facility] Natural father [facility] Natural father [facility] mother [facility] Social History Social Habit Start Date Stop Date Quantity Comments Source History of Cigarette Smoker [facility] tobacco use Hospital Tobacco use and 2019-11-06 2019-11-06 Never used [facility] exposure 00:00:00 00:00:00 Hospital Alcohol intake 2019-11-06 2019-11-06 Current [facility] 00:00:00 00:00:00 non-drinker of Hospital alcohol (finding) Sex Ass[birth year] [facility] 00:00:00 00:00:00 Hospital Smoking Status Start Date Stop Date Source Light Tobacco Smoker [facility] Current every day smoker 2019-11-06 00:00:00 Met [facility] Medications Ordered Filled Start Stop Current Ordering Indication Dosage Frequency Signature Comments Components Source Medication Medication Date Date Medication? Clinician (SIG) Name Name celecoxib 2020-0 Yes Take 1 Method i (CeleBREX) 05-[address] 200 MG 00:00: mouth Hospita capsule 00 twice l daily azaTHIOprin 2019-2020- No Take 3 Met hodi e (IMURAN) 05-[address] 50 mg 00:00: 04:59 mouth once Hospi ta tablet 00 :00 daily l calcium 2020-0 Yes 1{tbl} QD Chew 1 Method i carbonate-v 1-07 tablet itamin D3 17:44: nightly. Hosp [facility] 600 mg 28 l (1,500 mg)-800 unit tablet,chew able VITAMIN B 2020-0 Yes 1{tbl} QD Take 1 Meth tricia COMPLEX 1-07 tablet by (SUPER B-50 17:44: mouth Hospi ta COMPLEX 28 daily. l ORAL) MULTIVIT 2020-0 Yes 1{tbl} QD Take 1 Metho di WITH 1-07 tablet by CALCIUM,IRO 17:44: mouth Hospi ta N,MIN (ONE 28 daily. l DAILY WOMEN'S ORAL) cholecalcif 2020-0 Yes 1000U QD Take 1,000 Methodi nikhil, 1-07 Units by vitamin D3, 17:44: mouth Hospi ta 4,000 unit 28 daily. l tablet magnesium 2020-0 Yes 250mg QD Take 250 Met hodi oxide 250 1-[address] mg tablet 17:44: mouth Hospita 28 daily. l POTASSIUM 2020-0 Yes 100mg Q.5D Take 100 Met hodi ORAL 1-[address] 17:44: mouth 2 Hospita 28 (two) l times a day. diazePAM 2020-0 Yes 2.5mg Q.5D Take 2.5 Meth tricia (VALIUM) 5 1-[address] MG tablet 17:44: mouth 2 Hospi ta 28 (two) l times a day. aspirin 325 2019-0 Yes Q24H daily. Meth tricia MG tablet 1-07 st 17:44: Hospita 28 l simvastatin 2019-0 Yes 20mg QD Take 20 mg Methodi (ZOCOR) 20 1-[address] MG tablet 17:44: nightly. [facility]osp [facility] 28 l levothyroxi 2018-10 2020- No 125ug Take 125 Methodi ne 2-17 12-[address] (SYNTHROID) 00:00: 05:59 mouth. Hos chucky 125 mcg 00 :00 l tablet gabapentin Yes 300mg [id number] Take 300 [facility] (NEURONTIN) 1-16 [id number] mg by s t 300 mg 00:00: 3D mouth 3 Hospita capsule 00 (three) l times a day. carvedilol 2017-10 Yes 3.125mg Q.5D Take 3.125 [facility]i (COREG) 0-[address] 3.125 MG 00:00: mouth 2 Hospit a tablet 00 (two) l times a day with meals. losartan 2017-10 Yes 25mg QD Take 25 mg Met hodi (COZAAR) 25 0-[address] MG tablet 00:00: daily. Hospit a 00 l TRELEGY 2017-10 Yes Methodi ELLIPTA 0-16 st 100-62.5-25 00:00: Hospit a mcg blister 00 l with device sertraline Yes 100mg QD Take 100 Me thodi (ZOLOFT) 3-[address] 100 MG 00:00: mouth Hospita tablet 00 daily. l PNEUMOVAX 2016-10 Yes INJECT Method i 23 25 1-[address] mcg/0.5 mL 00:00: Hospita syringe 00 l vaccine pantoprazol 2016-10 Yes 40mg QD Take 40 mg Methodi e 0-[address] (PROTONIX) 00:00: daily. Hospi ta 40 MG EC 00 l tablet alendronate Yes 70mg Q1W Take 70 mg [facility]i (FOSAMAX) 7-[address] 70 MG 00:00: every 7 Hospita tablet 00 days. l RESTASIS Yes 1[drp] Q.5D Administer M ethodi MULTIDOSE 7-[address] 0.05 % 00:00: both eyes Hospit a drops 00 2 (two) l times a day. lactulose Yes [facility] (CHRONULAC) 3-06 st 10 gram/15 00:00: Hospita mL solution 00 l mirtazapine Yes 30mg QD Take 30 mg [facility] (REMERON) [address] 30 MG 00:00: nightly. Hospita tablet 00 l morPHINE Yes 15mg Q.5D Take 15 mg Met hodi (MS CONTIN) [address] 15 MG 12 hr 00:00: (two) Hospi ta tablet 00 times a l day. VENTOLIN Yes 2{puff} Q.25D Inhale 2 M ethodi HFA 90 2-[address] mcg/actuati 00:00: (four) Hosp [facility] on inhaler 00 times a l day as needed. Restasis Restasis Yes Chandu not [facility] Gabapentin Gabapentin Yes Chandu not [facility] Breo Breo Yes Chandu not [facility] Ellipta Ellipta [facility] potassium potassium Yes Chandu not [facility] losartan losartan Yes Chandu not [facility] Vitamin Vitamin Yes Chandu not [facility] B-12 B-12 [facility] Pantoprazol Pantoprazol Yes Chandu not [facility] e Sodium e Sodium [facility] defined [facility] Vitamin D-3 Vitamin D-3 Yes Chandu not [facility] Celecoxib Celecoxib Yes Chandu not [facility] Morphine Morphine Yes Chandu not [facility] Sulfate ER Sulfate ER [facility] Calcium Calcium Yes Chandu not [facility] Carvedilol Carvedilol Yes Chandu not [facility] Levothyroxi Levothyroxi Yes Chandu not [facility] ne Sodium ne Sodium [facility] defined [facility] Simvastatin Simvastatin Yes Chandu not [facility] Ventolin Ventolin Yes Chandu not [facility] Alendronate Alendronate Yes Chandu not [facility] St Sodium Sodium [facility] defined [facility] diazepam 5 diazepam 5 No 1 Q1D diazepam 5 Village mg tablet mg tablet mg tablet Family Take 1 Take 1 Take 1 Practic tablet tablet tablet e every day every day every day by oral by oral by oral route. route. route. gabapentin gabapentin No 1capsul TID gabapentin [facility] 300 mg 300 mg e(s) 300 mg Family capsule capsule capsule Practi c Take 1 Take 1 Take 1 e capsule 3 capsule 3 capsule 3 times a day times a day times a by oral by oral day by route. route. oral route. lactulose lactulose No 15mL Q1D lactulose [facility] 10 gram/15 10 gram/15 10 gram/15 Family mL (15 mL) mL (15 mL) mL (15 mL) Practic oral oral oral e solution solution solution Take 15 mL Take 15 mL Take 15 mL every day every day every day by oral by oral by oral route. route. route. levothyroxi levothyroxi No 1capsul Q1D levothyrox [facility] ne 125 mcg ne 125 mcg e(s) ine 125 Family capsule capsule mcg Practic Take 1 Take 1 capsule e capsule capsule Take 1 every day every day capsule by oral by oral every day route. route. by oral route. mirtazapine mirtazapine No 1 Q1D mirtazapin [facility] 30 mg 30 mg e 30 mg Family tablet Take tablet Take tablet Practic 1 tablet 1 tablet Take 1 e every day every day tablet by oral by oral every day route. route. by oral route. morphine 15 morphine 15 No 1 TID morphine [facility] mg mg 15 mg Family immediate immediate immediate Practic release release release e tablet Take tablet Take tablet 1 tablet 3 1 tablet 3 Take 1 times a day times a day tablet 3 by oral by oral times a route. route. day by oral route. Diazepam Diazepam Yes Chandu not [facility] pantoprazol pantoprazol No 1 Q1D pantoprazo [facility] e 40 mg e 40 mg le 40 mg Famil y tablet,gerard tablet,gerard tablet,del Practic yed release yed release ayed e Take 1 Take 1 release tablet tablet Take 1 every day every day tablet by oral by oral every day route. route. by oral route. sertraline sertraline No 1 Q1D sertraline [facility] 25 mg 25 mg 25 mg Family tablet Take tablet Take tablet Practic 1 tablet 1 tablet Take 1 e every day every day tablet by oral by oral every day route. route. by oral route. simvastatin simvastatin No 1 Q1D simvastati [facility] 20 mg 20 mg n 20 mg Family tablet Take tablet Take tablet Practic 1 tablet 1 tablet Take 1 e every day every day tablet by oral by oral every day route. route. by oral route. Trelegy Trelegy No 1puff(s Q1D Trelegy Fadi jenny Ellipta 100 Ellipta 100 ) Ellipta Family mcg-62.5 mcg-62.5 100 Practic mcg-25 mcg mcg-25 mcg mcg-62.5 e powder for powder for mcg-25 mcg inhalation inhalation powder for Inhale 1 Inhale 1 inhalation puff every puff every Inhale 1 day by day by puff every inhalation inhalation day by route. route. inhalation route. Ventolin Ventolin No 2puff(s Q4H Ventolin [facility] HFA 90 HFA 90 ) HFA 90 Family mcg/actuati mcg/actuati mcg/actuat Practic on aerosol on aerosol ion e inhaler inhaler aerosol Inhale 2 Inhale 2 inhaler puffs every puffs every Inhale 2 4 hours by 4 hours by puffs inhalation inhalation every 4 route. route. hours by inhalation route. alendronate alendronate No 1 Q1W alendronat [facility] 70 mg 70 mg e 70 mg Family effervescen effervescen effervesce Practic t tablet t tablet nt tablet e Take 1 Take 1 Take 1 tablet tablet tablet every week every week every week by oral by oral by oral route. route. route. azathioprin azathioprin No 1 TID azathiopri [facility] e 50 mg e 50 mg ne 50 mg Famil y tablet Take tablet Take tablet Practic 1 tablet 3 1 tablet 3 Take 1 e times a day times a day tablet 3 by oral by oral times a route. route. day by oral route. Celebrex Celebrex No 1capsul BID Celebrex [facility] 200 mg 200 mg e(s) 200 mg Family capsule capsule capsule Practi c Take 1 Take 1 Take 1 e capsule capsule capsule twice a day twice a day twice a by oral by oral day by route. route. oral route. Mirtazapine Mirtazapine Yes Chandu not [facility] Sertraline Sertraline Yes Chandu not C HI [facility] HCl HCl [facility] Multivitami Multivitami Yes Chandu not [facility] n n [facility] defined [facility] Immunizations Ordered Immunization Filled Immunization Date Status Commen ts Source Name Name influenza, influenza, 2019-08-31 Completed [place] [place] injectable, injectable, 00:00:00 Practice quadrivalent quadrivalent Vital Signs Vital Name Observation Time Observation Value Comments Source BP Diastolic 2021-02-16 00:00:00 75 mm[Hg] [facility] Height 2021-02-16 00:00:00 71 [in_i] [place] [place] Practice BMI (Body Mass 2021-02-16 00:00:00 26.8 kg/m2 [facility] e Family Index) Practice BP Systolic 2021-02-16 00:00:00 125 mm[Hg] [facility] Body Weight 2021-02-16 00:00:00 192 [lb_av] [facility] Height 2020-02-13 00:00:00 69 [in_i] [facility] BMI (Body Mass 2020-02-13 00:00:00 27.9 kg/m2 [facility] e Family Index) Practice Body Weight 2020-02-13 00:00:00 189 [lb_av] [facility] Procedures Procedure Date / Time Performed Performing Clinician Sour e Hernia Repair W/mesh [facility] Practice Plan of Care Planned Activity Planned Date Details Comments Source Future Scheduled Test COVID-19 VACCINE (1) [facility] [code = COVID-19 VACCINE (1)] Future Scheduled Test Screening [facility] malignant [facility] neoplasm of cervix (procedure) [code = 870882106] Future Scheduled Test BREAST CANCER SCREENING [facility] [code = BREAST CANCER SCREENING] Future Scheduled Test COLONOSCOPY SCREENING [facility] [code = COLONOSCOPY SCREENING] Future Scheduled Test SHINGLES VACCINES (#1) [facility] [code = SHINGLES VACCINES (#1)] Future Scheduled Test INFLUENZA VACCINE [[facility] INFLU[facility]ACC[facility]] Encounters Start End Encounter Admission Attending Care Care Encounter Source Date/Time Date/Time Type Type Clinicians Facility Department ID 2021-02-16 2021-02-16 [facility] [place] - [id number] [facility] 00:00:00 00:00:00 [facility] isaiah dahl, SALESFORCE ADMINISTRATOR: Medical - Zacarias thomas [address] [email or web address] [facility], [address] [address], [place] [address] , Ph. 2020-07-14 2020-07-14 Refill [place], 1.2.840.1 [id number] Methodi 00:00:00 00:00:[id number] 3.430.2.7 Hospit a .3.915689 l .8 2020-07-04 2020-07-04 Refill [place], 1.2.840.1 [id number] [facility]i 00:00:00 00:00:[id number] 3.430.2.7 Hospit a .3.049092 l .8 2020-07-03 2020-07-03 Refill [place], 1.2.840.1 [id number] [facility] 00:00:00 00:00:[id number] 3.430.2.7 Hospit a .3.437781 l .8 2020-07-02 2020-07-02 Refill [place], 1.2.840.1 [id number] [facility] 00:00:00 00:00:[id number] 3.430.2.7 Hospit a .3.945475 l .8 2020-02-13 2020-02-13 [facility] [place] - [id number] V illage 00:00:00 00:00:00 [facility] isaiah dahl, SALESFORCE ADMINISTRATOR: Janis Cifuentes35 [address] [email or web address] [facility], [address], [place] [address] , Ph. 2020-02-05 2020-02-05 Outpatient [facility] [id number] [address] [place] [address] 00:00:00 00:00:[address] PARAG [address] 2018-10-26 2018-10-26 [place] [place] [id number] [facility] 08:30:00 08:30:00 [facility] Results This patient has no known results.
== END 2021-06-22 14:04 | disposition left against medical advice (07) ==
LOC: ER 12:17
DX: Z02.9 Encounter for administrative examinations, unspecified (principal)

== ENCOUNTER 2022-02-06 18:02 | Emergency (ER) | payer MEDICARE ==
--- OUTSIDE RECORDS SUMMARY | 2022-02-06 18:05 | XMS REPORT | Continuity of Care Document ---
:1960 Author Organization [facility] t Address [address] [place] [address] Care Team Providers Name Role Phone Yahir Milian DO Primary Care Physician CURRY_S Attending Clinician Unavailable Miller_S_AH Attending Clinician Unavailable Edith-Mbayo_A_AH Attending Clinician Unavailable Ambrosio LANG Attending Clinician CURRY_S Admitting Clinician Unavailable Miller_S_AH Admitting Clinician Unavailable Edith-Mbayo_A_AH Admitting Clinician Unavailable Payers Payer Name Policy Policy Number Effective Expiration Source Type Date Date [employer] [id number] 2021 (MEDICARE REPLACEMENT 00:00:[address] [facility] - [id number] 2019 [employer] (MEDICARE 00:00:00 REPLACEMENT/ADVANTAGE - HMO) [employer] [id number] 2016 Method ist [id number] 2015- 00:00:00 Ho spital PresentHMO Problems Condition Condition Condition Status Onset Resolution [...] Hypothyroi Problem Active V illage dism dism 10-31 Family 00:00: Practic 00 e Recurrent Recurrent Problem Active Fadi jenny major Major 10-31 Family depressive Depressive 00:00: Pr actic episodes, Episodes, 00 e moderate Moderate Essential Essential Problem Active Fadi jenny hypertensi Hypertensi 10-31 Fa jackie on 00:00: Practic 00 e Peripheral Peripheral [...] Arthritis Disease [facility] COPD COPD Disease Active [facility] (chronic (chronic st obstructiv obstructiv Ho spita e e l pulmonary pulmonary disease) disease) Depression Depression Disease Active M [facility] Headache Headache Disease Active Metho di [facility] HL HL Disease Active [facility] (hearing (hearing st loss) loss) [facility] Heart Heart Disease Active [facility]i disease disease [facility] Hypertensi Hypertensi Disease Active M ethodi on on [facility] Pneumonia Pneumonia Disease Active [facility] Disease of Disease of Disease 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 [facility] Internal [facility] Problem [facility] derangemen derangemen [facility] k[facility] - t of right t of right Me moria knee knee l [facility] Clin[facility] Pain in Pain in Problem Active [facility] right knee right knee [facility] Sciatica, Sciatica, Problem Active [facility] right side right side [facility] Other Other Problem Active [facility] chronic chronic [facility] Pain of Pain of Diagnosis Active [facility] right right [facility] - lower leg lower leg Solo [facility]elin l [facility] Allergies, Adverse Reactions, Alerts This patient has no known allergies or adverse reactions. Family History Family Member Diagnosis Comments Start Date Stop Date Source Natural father Asthma [facility] Natural father COPD [facility] Natural father Cancer [facility] Natural father Emphysema [facility] Natural mother Cancer [facility] Social History Social Habit Start Date Stop Date Quantity Comments Source History of Cigarette Smoker [facility] t tobacco use Hospital Tobacco use and 2019-11-06 2019-11-06 Never used [facility] exposure 00:00:00 00:00:00 Hospital Alcohol intake 2019-11-06 2019-11-06 Current [facility]andaen 00:00:00 00:00:00 non-drinker of Hospital alcohol (finding) Sex Ass[birth year] At [birth year] M[facility] 00:00:00 00:00:00 Hospital Smoking Status Start Date Stop Date Source Light Tobacco Smoker [facility] Current every day smoker 2019-11-06 00:00:00 Met [facility] Medications Ordered Filled Start Stop Current Ordering Indication Dosage Frequency Signature Comments Components Source Medication Medication Date Date Medication? Clinician (SIG) Name Name celecoxib 2019- Yes Take 1 Method i (CeleBREX) 05-30 capsule by 200 MG 00:00: mouth Hospita capsule 00 twice l daily azaTHIOprin 2019-2020- No Take 3 [facility] 50 mg 00:00: 04:59 mouth once Hospi ta tablet 00 :00 daily l calcium 2020-0 Yes 1{tbl} QD Chew 1 Method i carbonate-v -07 tablet itamin D3 17:44: nightly. Hosp frank[facility] [...] (two) l times a day. aspirin 325 2020-0 Yes Q24H daily. Meth tricia MG tablet 1-07 st 17:44: Hospita 28 l simvastatin 2020-0 Yes 20mg QD Take 20 mg Methodi (ZOCOR) 20 1-[address] MG tablet 17:44: nightly. Hosp franklyn 28 l levothyroxi 2018-10 2020- No 125ug Take 125 Methodi ne 2-17 12-[address] (SYNTHROID) 00:00: 05:59 mouth. Hos chucky 125 mcg 00 :00 l tablet gabapentin 2018- Yes 300mg [id number] Take 300 [facility] (NEURONTIN) 1-16 [id number] mg by s t 300 mg 00:00: [...] 70mg Q1W Take 70 mg [facility] (FOSAMAX) 05-[address] 70 MG 00:00: every 7 Hospita tablet 00 days. l RESTASIS Yes 1[drp] Q.5D Administer M ethodi MULTIDOSE 05-[address] 0.05 % 00:00: both eyes Hospit a drops 00 2 (two) l times a day. lactulose Yes [facility] (CHRONULAC) 3 st 10 gram/15 00:00: Hospita mL solution 00 l mirtazapine Yes 30mg QD Take 30 mg [facility] (REMERON) [address] 30 MG 00:00: nightly. Hospita tablet 00 l morPHINE Yes 15mg Q.5D Take 15 mg Met hodi (MS CONTIN) 01-[address] 15 MG 12 hr 00:00: (two) Hospi ta tablet 00 times a l day. VENTOLIN Yes 2{puff} Q.25D Inhale 2 M ethodi HFA 90 2-[address] mcg/actuati 00:00: (four) Hosp [facility] on inhaler 00 times a l day as needed. Mirtazapine Mirtazapine Yes [facility] not [facility] [place] [facility] Sertraline Sertraline Yes Chandu not C [facility] HCl HCl [place] defined [facility] Multivitami Multivitami Yes [facility] not [facility] n [place] defined [facility] diazepam 5 diazepam 5 No 1 Q1D diazepam 5 Village mg tablet mg tablet mg tablet Family Take 1 Take 1 Take 1 Practic tablet tablet tablet e every day every day every day by oral by oral by oral route. route. route. gabapentin gabapentin No 1capsul TID gabapentin [place] 300 mg 300 mg e(s) 300 mg Family capsule capsule capsule Practi c Take 1 Take 1 Take 1 e capsule 3 capsule 3 capsule 3 times a day times a day times a by oral by oral day by route. route. oral route. lactulose lactulose No 15mL Q1D lactulose [facility] 10 gram/15 10 gram/15 10 gram/15 Family mL (15 mL) mL (15 mL) mL (15 mL) Practic oral oral oral e solution solution solution Take 15 mL Take 15 mL Take 15 mL every day every day every day by oral by oral by oral route. route. route. levothyroxi levothyroxi No 1capsul Q1D levothyrox [facility] ne 125 mcg ne 125 mcg e(s) ine 125 Family capsule capsule mcg Practic Take 1 Take 1 capsule e capsule capsule Take 1 every day every day capsule by oral by oral every day route. route. by oral route. Restasis Restasis Yes Chandu fannie LEDEZMA S [facility] mirtazapine mirtazapine No 1 Q1D mirtazapin [facility] 30 mg 30 mg e 30 mg [...] a route. route. day by oral route. pantoprazol pantoprazol No 1 Q1D pantoprazo [place] e 40 mg e 40 mg le 40 mg Famil y tablet,gerard tablet,gerard tablet,del Practic yed release yed release ayed e Take 1 Take 1 release tablet tablet Take 1 every day every day tablet by oral by oral every day route. route. by oral route. sertraline sertraline No 1 Q1D sertraline [facility] 25 mg 25 mg 25 mg Family tablet Take tablet Take tablet Practic 1 tablet 1 tablet Take 1 e every day every day tablet by oral by oral every day route. route. by oral route. Gabapentin Gabapentin Yes Chandu fannie Simpson [facility] simvastatin simvastatin No 1 Q1D simvastati [facility] 20 mg 20 mg n 20 mg [...] route. Ventolin Ventolin No 2puff(s Q4H Ventolin [place] HFA 90 HFA 90 ) HFA 90 Family mcg/actuati mcg/actuati mcg/actuat Practic on aerosol on aerosol ion e inhaler inhaler aerosol Inhale 2 Inhale 2 inhaler puffs every puffs every Inhale 2 4 hours by 4 hours by puffs inhalation inhalation every 4 route. route. hours by inhalation route. alendronate alendronate No 1 Q1W alendronat [facility] 70 mg 70 mg e 70 mg [...] route. Celebrex Celebrex No 1capsul BID Celebrex [facility] 200 mg 200 mg e(s) 200 mg Family capsule capsule capsule Practi c Take 1 Take 1 Take 1 e capsule capsule capsule twice a day twice a day twice a by oral by oral day by route. route. oral route. Breo Breo Yes Chandu not [facility] [...] [facility] Levothyroxi Levothyroxi Yes Chandu not [facility] ne Sodium ne Sodium [place] defined [facility] Simvastatin Simvastatin Yes Chandu not [facility] [place] [facility] Ventolin Ventolin Yes Chandu not [facility] [place] [facility] Alendronate Alendronate Yes Chandu not [facility] Sodium Sodium [place] defined [facility] Diazepam Diazepam Yes Chandu not [facility] [place] [facility] Immunizations Ordered Immunization Filled Immunization Date Status Commen ts Source Name Name influenza, influenza, 2019-08-31 Completed [facility] injectable, injectable, 00:00:00 Practice quadrivalent quadrivalent Vital Signs Vital Name Observation Time Observation Value Comments Source BP Diastolic 2021-02-16 00:00:00 75 mm[Hg] [facility] Height 2021-02-16 00:00:00 71 [in_i] [facility] Practice BMI (Body Mass 2021-02-16 00:00:00 26.8 kg/m2 [facility] Family Index) Practice BP Systolic 2021-02-16 00:00:00 125 mm[Hg] [facility] Body Weight 2021-02-16 00:00:00 192 [lb_av] [facility] Height 2020-02-13 00:00:00 69 [in_i] [facility] BMI (Body Mass 2020-02-13 00:00:00 27.9 kg/m2 [facility] Family Index) Practice Body Weight 2020-02-13 00:00:00 189 [lb_av] [facility] Procedures Procedure Date / Time Performed Performing Clinician Sour e Hernia Repair W/mesh [facility] Practice Plan of Care Planned Activity Planned Date Details Comments Source Future Scheduled Test INFLUENZA VACCINE [code [facility] = INFLUENZA VACCINE] Future Scheduled Test COVID-19 VACCINE (1) [facility] [code = COVID-19 VACCINE (1)] Future Scheduled Test Screening for malignant [facility] neoplasm of cervix (procedure) [code = 170948864] Future Scheduled Test BREAST CANCER SCREENING [facility] [code = BREAST CANCER SCREENING] Future Scheduled Test COLONOSCOPY SCREENING [facility] [code = COLONOSCOPY SCREENING] Future Scheduled Test SHINGLES VACCINES (#1) [facility] [code = SHINGLES VACCINES (#1)] Encounters Start End Encounter Admission Attending Care Care Encounter Source Date/Time Date/Time Type Type Clinicians Facility Department ID 2021-06-26 2021-06-26 Outpatient CURRY_S [facility] [id number] [facility] 05:00:00 05:00:00 [id number] Medica l Group 2021-04-25 2021-04-25 Outpatient [facility]ORY [facility] [id number] [facility] 11:00:00 11:00:00 0626 Medica l Group 2021-04-10 2021-04-10 Outpatient Miller_S_AH VFP [facility] [id number] [id number] [facility] 01:49:00 01:49:00 [id number] Family Practic e 2021-02-21 2021-02-21 Outpatient Edith-Mbayo [facility]FP [facility] 795 [id number] [facility] 05:57:00 05:57:00 _A_AH [id number] Family Practic e 2021-02-19 2021-02-19 Outpatient Edith-Mbayo [facility]FP [facility] [phone] [facility] 04:29:00 04:29:00 _A_AH [id number] Family Practic e 2021-02-16 2021-02-16 Outpatient Edith-Mbayo VFP [facility] 795 [id number] [facility] 01:16:00 01:16:00 _A_AH [id number] Family Practic e 2021-02-16 2021-02-16 [place] [facility] [place] - [id number] V illage 00:00:00 00:00:00 [facility] isaiah o, DIRECTOR OF SOCIAL MEDIA MARKETING: Medical - Practi c [address] [email or web address] [facility], [address], [place] [address] , Ph. 2020-07-14 2020-07-14 Refill Fakoya, 1.2.840.1 [id number] [facility] 00:00:00 00:00:[id number] 3.430.2.7 Hospit a .3.799576 l .8 2020-07-04 2020-07-04 Refill Fakoya, 1.2.840.1 [id number] [facility] 00:00:00 00:00:[id number] 3.430.2.7 Hospit a .3.515128 l .8 2020-07-03 2020-07-03 Refill Fakoya, 1.2.840.1 [id number] [facility] 00:00:00 00:00:[id number] 3.430.2.7 Hospit a .3.448494 l .8 2020-07-02 2020-07-02 Refill Fakoya, 1.2.840.1 [id number] [facility] 00:00:00 00:00:[id number] 3.430.2.7 Hospit a .3.644349 l .8 2020-04-22 2020-04-22 Outpatient Edith-Mbayo VFP P [address] [place] [address] 12:54:00 12:54:00 _A_AH [id number] Family Practic e 2020-04-11 2020-04-11 Outpatient Edith-Mbayo VFP [facility] [id number] 05:12:00 05:12:00 _A_AH [id number] Family Practic e 2020-03-17 2020-03-17 Outpatient Edith-Mbayo VFP [facility]FP [id number] 04:11:00 04:11:00 _A_AH [id number] Family Practic e 2020-02-13 2020-02-13 Elham P [place] - [id number] V illage 00:00:00 00:00:00 [facility] Toby dahl DIRECTOR OF SOCIAL MEDIA MARKETING: Medical - Practi c [address] [email or web address] [facility], [address], [place] [address] , Ph. 2019-12-19 2019-12-19 Outpatient Roopa [facility] [id number] [facility] 07:21:00 07:21:00 _A_ [id number] Family Practic e 2018-10-26 2018-10-26 Outpatient [facility] [id number] [facility] 08:30:00 08:30:00 t [facility] ent Clinics Results This patient has no known results.
[2022-02-06] MEDS ORDERED: MORPHINE 4 MG/ML SYR ONE ×2 (18:50→19:50)
[2022-02-06] MEDS ORDERED: ONDANSETRON 4 MG/2 ML VIAL ONE (18:51)
--- NOTE | 2022-02-06 19:57 | RAD REPORT ---
EXAM DESCRIPTION: RAD - Hip Right 2 View - 02/06/2022 6:58 pm CLINICAL HISTORY: Right hip pain FINDINGS: No fracture or dislocation is seen.
--- NOTE | 2022-02-06 19:57 | RAD REPORT ---
EXAM DESCRIPTION: CT - Pelvis Wo Cont - 02/06/2022 7:20 pm CLINICAL HISTORY: Pelvic pain status post fall COMPARISON: None. TECHNIQUE: Computed axial tomography of the pelvis was obtained. Coronal and sagittal reconstruction performed All CT scans are performed using dose optimization technique as appropriate and may include automated exposure control or mA/KV adjustment according to patient size. FINDINGS: No fracture or dislocation is seen. Muscles are normal size and density. A subcutaneous contusion is not noted IMPRESSION: No fracture seen if patient continues to have symptoms to suggest an occult fracture MRI would be recommended
--- NOTE | 2022-02-06 20:39 | ER ---
Nurse's Notes [facility] Name: Daniela Mustafa Age: 61 yrs Sex: Female : 1960 Arrival Date: 02/06/2022 Time: 18:09 Bed 6 Private MD: Diagnosis: Fall on same level, unspecified;Contusion of right hip Presentation: 02/06 18:23 Chief complaint: Patient states: "I tripped over my kittens and fell onto my right ab2 hipPt c/o right hip pain and back pain. Pt denies hitting head or LOC. Pt denies use of blood thinners. Coronavirus screen: Vaccine status: Patient reports receiving the 2nd dose of the covid vaccine. Client denies travel out of the [place] in the last 14 days. At this time, the client does not indicate any symptoms associated with coronavirus-19. Ebola Screen: Patient negative for fever greater than or equal to 101.5 degrees Fahrenheit, and additional compatible Ebola Virus Disease symptoms Patient denies exposure to infectious person. Patient denies travel to an Ebola-affected area in the 21 days before illness onset. No symptoms or risks identified at this time. Initial Sepsis Screen: Does the patient meet any 2 criteria? No. Patient's initial sepsis screen is negative. Does the patient have a suspected source of infection? No. Patient's initial sepsis screen is negative. Risk Assessment: Do you want to hurt yourself or someone else? Patient reports no desire to harm self or others. Onset of symptoms is unknown. 18:23 Method Of Arrival: Wheelchair ab2 18:23 Acuity: TAB 4 ab2 Triage Assessment: 18:26 General: Appears in no apparent distress. uncomfortable, Behavior is calm, cooperative, ab2 appropriate for age. Pain: Complains of pain in right hip Pain currently is 7 out of 10 on a pain scale. Neuro: Level of Consciousness is awake, alert, obeys commands, Oriented to person, place, time, situation, Appropriate for age Steamfitter are equal bilaterally Moves all extremities. Speech is normal. Cardiovascular: Denies chest pain, shortness of breath. Respiratory: Airway is patent Respiratory effort is even, unlabored, Respiratory pattern is regular, symmetrical. GI: No deficits noted. No signs and/or symptoms were reported involving the gastrointestinal system. : No deficits noted. No signs and/or symptoms were reported regarding the genitourinary system. Derm: Skin is fragile. Historical: - Allergies: 18:25 No Known Allergies; ab2 - PMHx: 18:25 Fibromyalgia; Hypertension; Myocardial infarction; neuropathy; osteoarthritis; ab2 Osteoporosis; Rheumatoid Arthritis; Thyroid problem; - Immunization history:: Adult Immunizations up to date. - Social history:: Smoking status: Patient reports the use of cigarette tobacco products, smokes one-half pack cigarettes per day. Screenin:58 Abuse screen: Denies threats or abuse. Nutritional screening: No deficits noted. vg1 Tuberculosis screening: No symptoms or risk factors identified. Fall Risk Fall in past 12 months (25 points). No secondary diagnosis (0 pts). IV access (20 points). Ambulatory Aid- None/Bed Rest/Nurse Assist (0 pts). Gait- Normal/Bed Rest/Wheelchair (0 pts) Mental Status- Oriented to own ability (0 pts). Total Laboy Fall Scale indicates No Risk (0-24 pts). Assessment: 18:57 General: Appears in no apparent distress. uncomfortable, Behavior is calm, cooperative. vg1 Pain: Complains of pain in right hip Pain currently is 10 out of 10 on a pain scale. Pain began today. Neuro: Level of Consciousness is awake, alert, obeys commands, Oriented to person, place, time, situation. Cardiovascular: Patient's skin is warm and dry. Respiratory: Airway is patent Respiratory effort is even, unlabored. GI: No signs and/or symptoms were reported involving the gastrointestinal system. : No signs and/or symptoms were reported regarding the genitourinary system. EENT: No signs and/or symptoms were reported regarding the EENT system. Derm: Skin is intact, is healthy with good turgor. Musculoskeletal: Circulation, motion, and sensation intact. 19:51 General: Appears in no apparent distress. uncomfortable, Behavior is calm, cooperative. lg3 Pain: Complains of pain in right hip. Neuro: Level of Consciousness is awake, alert, obeys commands, Oriented to person, place, time, situation. Respiratory: No deficits noted. Airway is patent Trachea midline Respiratory effort is even, unlabored, Respiratory pattern is regular, symmetrical. GI: No deficits noted. No signs and/or symptoms were reported involving the gastrointestinal system. Derm: Skin is intact, is healthy with good turgor, Skin is dry. Musculoskeletal: Circulation, motion, and sensation intact. Capillary refill < 3 seconds, Range of motion: limited in right hip. Vital Signs: 18:23 BP 113 / 75; Pulse 94; Resp 17; Temp 98.3; Pulse Ox 98% on R/A; Weight 83.01 kg; Height ab2 5 ft. 10 in. (177.80 cm); Pain 7/10; 19:53 BP 113 / 68; Pulse 76; Resp 17 S; Pulse Ox 99% on R/A; lg3 20:41 BP 121 / 76; Pulse 79; Resp 18 S; Pulse Ox 97% on R/A; as6 18:23 Body Mass Index 26.26 (83.01 kg, 177.80 cm) ab2 ED Course: 18:09 Patient arrived in ED. mr 18:25 Triage completed. ab2 18:26 Arm band placed on right wrist. ab2 18:27 Ed Rico NP is PHCP. pm1 18:27 Timo Gibson MD is Attending Physician. pm1 18:42 Kassandra Escalona, GERMÁN is Primary Nurse. vg1 18:48 Inserted saline lock: 20 gauge in right wrist, using aseptic technique. vg1 18:58 Patient has correct armband on for positive identification. Bed in low position. Call vg1 light in reach. Side rails up X 1. Adult w/ patient. 19:00 Hip Right 2 View XRAY In Process Unspecified. EDMS 19:[address] In Process Unspecified. EDMS 19:22 Primary Nurse role handed off by Kassandra Escalona, GERMÁN cs9 19:40 Hazel Ibarra, GERMÁN is Primary Nurse. lg3 20:42 No provider procedures requiring assistance completed. IV discontinued, intact, as6 bleeding controlled, No redness/swelling at site. Pressure dressing applied. Administered Medications: 18:50 Drug: Zofran (Ondansetron) 4 mg Route: IVP; Site: right wrist; vg1 19:41 Follow up: Response: No adverse reaction lg3 18:52 Drug: morphine 4 mg Route: IVP; Site: right wrist; vg1 19:41 Follow up: Response: No adverse reaction lg3 19:50 Drug: morphine 4 mg Route: IVP; Site: right wrist; lg3 19:50 Follow up: Response: No adverse reaction; RASS: Alert and Calm (0) lg3 Outcome: 20:38 Discharge ordered by . pm1 20:42 Discharged to home ambulatory, with family. as6 20:42 Condition: stable 20:59 Discharge instructions given to patient, Instructed on discharge instructions, follow lg3 up and referral plans. medication usage, Demonstrated understanding of instructions, follow-up care, medications, Prescriptions given X 1. 21:00 Patient left the ED. lg3 Signatures: Dispatcher [employer] EDLA Michael Lisa Rico, Ed, STORE TEAM MEMBER STORE TEAM MEMBER pm1 Hazel Ibarra, RN RN lg3 Kassandra Escalona RN RN 1 Kathrin Ambrose cs9 Dre Boyle RN RN as6 David Xavier Corrections: (The following items were deleted from the chart) 21:00 20:42 Discharge instructions given to patient, Instructed on discharge instructions, lg3 follow up and referral plans. Demonstrated understanding of instructions, follow-up care, as6
--- NOTE | 2022-02-06 20:40 | EDPHYS ---
Physician Documentation [facility] Name: Daniela Mustafa Age: 61 yrs Sex: Female : 1960 Arrival Date: 02/06/2022 Time: 18:09 Bed 6 Private MD: SKIP Physician Timo Gibson HPI: 02/06 18:37 This 61 yrs old Female presents to ER via Wheelchair with complaints of Right hip pain. pm1 18:37 The patient or guardian reports pain. that occurred at home, sustained from a fall, pm1 while walking, Tripped on a cat, There is no obvious deformity, There is no radiation of the patient's discomfort. The complaints affect the right hip. Onset: The symptoms/episode began/occurred today. Modifying factors: The symptoms are alleviated by remaining still, the symptoms are aggravated by movement. Associated signs and symptoms: Loss of consciousness: the patient experienced no loss of consciousness, Pertinent negatives: Headache, head injury, neck pain. Severity of symptoms: in the emergency department the symptoms are unchanged. The patient has not experienced similar symptoms in the past. The patient has not recently seen a physician. Historical: - Allergies: 18:25 No Known Allergies; ab2 - PMHx: 18:25 Fibromyalgia; Hypertension; Myocardial infarction; neuropathy; osteoarthritis; ab2 Osteoporosis; Rheumatoid Arthritis; Thyroid problem; - Immunization history:: Adult Immunizations up to date. - Social history:: Smoking status: Patient reports the use of cigarette tobacco products, smokes one-half pack cigarettes per day. ROS: 18:37 Constitutional: Negative for fever, chills, and weight loss, Cardiovascular: Negative pm1 for chest pain, palpitations, and edema, Respiratory: Negative for shortness of breath, cough, wheezing, and pleuritic chest pain, Abdomen/GI: Negative for abdominal pain, nausea, vomiting, diarrhea, and constipation. 18:37 Skin: Negative for injury, rash, and discoloration, Neuro: Negative for headache, weakness, numbness, tingling, and seizure. 18:37 Back: Positive for of the thoracic area, pain. 18:37 MS/extremity: Positive for Right hip pain. 18:37 All other systems are negative. Exam: 18:37 Constitutional: This is a well developed, well nourished patient who is awake, alert, pm1 and in no acute distress. Head/Face: Normocephalic, atraumatic. Neck: Trachea midline, no thyromegaly or masses palpated, and no cervical lymphadenopathy. Supple, full range of motion without nuchal rigidity, or vertebral point tenderness. No Meningismus. 18:37 Skin: Warm, dry with normal turgor. Normal color with no rashes, no lesions, and no evidence of cellulitis. 18:37 Cardiovascular: Exam negative for acute changes, Rate: normal, Rhythm: regular, Pulses: no pulse deficits are appreciated. 18:37 Respiratory: Exam negative for acute changes, respiratory distress, shortness of breath. 18:37 Abdomen/GI: Inspection: abdomen appears normal, Palpation: abdomen is soft and non-tender, in all quadrants. 18:37 Back: ROM is normal, vertebral tenderness, is not appreciated, muscle spasm, is appreciated in the left mid back and right mid back, Tenderness present to the posterior iliac crest bilaterally. 18:37 Musculoskeletal/extremity: Extremities: grossly normal except: noted in the right hip: tenderness, There is no evidence of decreased ROM, deformity, Shortening or rotation. Vital Signs: 18:23 BP 113 / 75; Pulse 94; Resp 17; Temp 98.3; Pulse Ox 98% on R/A; Weight 83.01 kg; Height ab2 5 ft. 10 in. (177.80 cm); Pain 7/10; 19:53 BP 113 / 68; Pulse 76; Resp 17 S; Pulse Ox 99% on R/A; lg3 20:41 BP 121 / 76; Pulse 79; Resp 18 S; Pulse Ox 97% on R/A; as6 18:23 Body Mass Index 26.26 (83.01 kg, 177.80 cm) ab2 MDM: 18:27 Patient medically screened. pm1 20:04 Data reviewed: vital signs. Data interpreted: Pulse oximetry: on room air is 99 %. pm1 Interpretation: normal. 20:38 Counseling: I had a detailed discussion with the patient and/or guardian regarding: the pm1 historical points, exam findings, and any diagnostic results supporting the discharge/admit diagnosis, radiology results, the need for outpatient follow up, to return to the emergency department if symptoms worsen or persist or if there are any questions or concerns that arise at home. 20:43 ED course: [place] reviewed. pm1 02/06 18:36 Order name: Hip Right 2 View XRAY; Complete Time: 20:04 pm1 02/06 18:36 Order name: Pelvis Wo Cont CT; Complete Time: 20:04 pm1 02/06 18:36 Order name: IV Saline Lock; Complete Time: 18:57 pm1 Administered Medications: 18:50 Drug: Zofran (Ondansetron) 4 mg Route: IVP; Site: right wrist; vg1 19:41 Follow up: Response: No adverse reaction lg3 18:52 Drug: morphine 4 mg Route: IVP; Site: right wrist; vg1 19:41 Follow up: Response: No adverse reaction lg3 19:50 Drug: morphine 4 mg Route: IVP; Site: right wrist; lg3 19:50 Follow up: Response: No adverse reaction; RASS: Alert and Calm (0) lg3 Disposition Summary: 02/06/22 20:38 Discharge Ordered Location: Home pm1 Problem: new pm1 Symptoms: have improved pm1 Condition: Stable pm1 Diagnosis - Fall on same level, unspecified pm1 - Contusion of right hip pm1 Followup: pm1 - With: Emergency Department - When: As needed - Reason: Worsening of condition Followup: pm1 - With: Private Physician - When: 2 - 3 days - Reason: Recheck today's complaints, Continuance of care, Re-evaluation by your physician Discharge Instructions: - Discharge Summary Sheet pm1 - Contusion pm1 - Fall Prevention in the Home, Adult pm1 - Hip Pain pm1 Forms: - Medication Reconciliation Form pm1 - Thank You Letter pm1 - Antibiotic Education pm1 - Prescription Opioid Use pm1 Prescriptions: - Tylenol-Codeine #3 300 mg-30 mg Oral - take 2 tablet by ORAL route every 6 hours As needed; 20 tablet; Refills: 0, pm1 Product Selection Permitted Addendum: 02/11/2022 18:33 Co-signature as Attending Physician, Timo Gibson MD I agree with the assessment and c juan plan of care. Signatures: Dispatcher [employer] Timo Price MD MD cha Marinas, Patrick, M[employer] pm1 Hazel Ibarra, RN RN lg3 Kassandra Escalona RN RN vg1 David Xavier
[2022-02-07 00:51] VITALS: TEMP 98.3
[2022-02-07 00:53] VITALS: BP 121/76; O2SAT 97
== END 2022-02-06 21:00 | disposition home or self-care (01) ==
LOC: ER 18:02
DX: S70.01XA Contusion of right hip, initial encounter (principal); W01.0XXA Fall on same level from slipping, tripping and stumbling without subsequent striking against object, initial encounter; Y93.89 Activity, other specified; Y92.9 Unspecified place or not applicable; F17.210 Nicotine dependence, cigarettes, uncomplicated; I10 Essential (primary) hypertension; M79.7 Fibromyalgia; M81.0 Age-related osteoporosis without current pathological fracture; M19.90 Unspecified osteoarthritis, unspecified site; I25.2 Old myocardial infarction
CPT/HCPCS: 72192; 73502; 96375; 96374; 99284; J2405